=== PATIENT | female | born 1995 | race Asian ===

== ENCOUNTER → 2022-02-08 15:22 | Outpatient (CLI) | payer OTHER, SELFPAY ==
[2022-02-08 16:26] LABS: Add Manual Diff / Slide Review NO; Basophils Absolute Auto 100 /uL (0-100); Basophils Percent Auto 0.7 % (0-2); Eosinophils Absolute Auto 300 /uL (0-450); Eosinophils Percent Auto 2.2 % (2-4); Hematocrit 38.7 % (36-46); Hemoglobin 13.4 g/dL (12.0-16.0); Lymphocytes Absolute Auto 2700 /uL (1100-4500); Lymphocytes Percent Auto 22.3 % (25-40); Mean Corpuscular HGB Conc 34.5 % (30-36); Mean Corpuscular Hemoglobin 29.4 PG (26-34); Mean Corpuscular Volume 85.1 fL (80-100); Monocytes Absolute Auto 600 /uL (0-900); Monocytes Percent Auto 5.2 % (3-14); Neutrophils Absolute Auto 8300 /uL (1500-7000); Neutrophils Percent Auto 69.6 % (50-75); Platelet Count 324 X10^3/uL (150-400); Red Blood Cell Count 4.55 X10^6/uL (4.0-5.2); White Blood Cell Count 11.9 X10^3/uL (4.5-11.0)
[2022-02-09 03:36] LABS: RPR Screen Non Reactive (Non Reactive)
[2022-02-09 08:53] LABS: Varicella IgG Antibody 639 index (Immune >165)
[2022-02-10 16:46] LABS: Hepatitis B Surface Antigen NEGATIVE s/c (NEGATIVE)
[2022-02-10 17:02] LABS: HIV 1 & 2 Ab/Ag 4th Gen Combo NEGATIVE (NEGATIVE); Hep C Virus Ab w/Reflex Quant NEGATIVE s/c (NEGATIVE)
== END ==
PROVIDERS: Referring Provider Obstetrics & Gynecology; Visit Provider Obstetrics & Gynecology
DX: Z34.01 Encounter for supervision of normal first pregnancy, first trimester (principal)
CPT/HCPCS: 36415; 80055; 86787; 86803; 86850; 86900; 86901; 87389

== ENCOUNTER → 2022-03-22 09:07 | Outpatient (CLI) | payer OTHER, SELFPAY ==
[2022-03-22 13:44] LABS: Appearance Urine UA SL CLOUDY; Bilirubin Urine UA NEGATIVE (NEGATIVE); Color Urine UA YELLOW; Glucose Urine UA NEGATIVE (Negative); Ketones Urine UA NEGATIVE (NEGATIVE); Leukocyte Esterase Urine UA 3+ (NEGATIVE); Nitrite Urine UA NEGATIVE (Negative); Occult Blood Urine UA TRACE-INTACT (Negative); Protein Urine UA NEGATIVE (Negative); Specific Gravity Urine UA 1.015 (1.000-1.035); Urobilinogen Urine UA 0.2 E.U./dL (0.2)
[2022-03-22 14:01] LABS: Bacteria Urine Moderate (10-30); Culture Indicated Urine Specimen Cultured; RBC Urine 1-5/HPF (0-5/HPF); Squamous Epithelial Cell Urine 5-10 /HPF (0-5/HPF); WBC Urine 1-5/HPF (0-5/HPF); pH Urine UA 6.5 (4.5-8.0)
== END ==
PROVIDERS: Visit Provider Obstetrics & Gynecology
DX: Z34.01 Encounter for supervision of normal first pregnancy, first trimester (principal)
CPT/HCPCS: 81003; 81015; 87086

== ENCOUNTER → 2022-04-20 11:06 | Outpatient (CLI) | payer OTHER, SELFPAY ==
[2022-04-21 04:23] LABS: Candida species Positive (Negative); Gardnerella vaginalis Positive (Negative); Trichomoas vaginalis Negative (Negative)
== END ==
PROVIDERS: Visit Provider Obstetrics & Gynecology
DX: N89.8 Other specified noninflammatory disorders of vagina (principal)
CPT/HCPCS: 87480; 87510; 87660

== ENCOUNTER → 2022-04-20 11:21 | Outpatient (CLI) | payer OTHER, SELFPAY ==
[2022-04-22 22:04] LABS: Estriol, Free 1.63 ng/mL (.); Maternal Ethnicity Other (.); Maternal Weight 147 lbs (.); Number of Fetuses No (.); OSBR Risk 1 IN 10000 (.); Results Report (.); Test Results *Screen Negative* (.); hCG, MoM 0.44 (.); hCG, Serum 14114 mIU/mL (.)
== END ==
PROVIDERS: Referring Provider Obstetrics & Gynecology; Visit Provider Obstetrics & Gynecology
DX: Z34.02 Encounter for supervision of normal first pregnancy, second trimester (principal); N89.8 Other specified noninflammatory disorders of vagina
CPT/HCPCS: 36415; 82105; 82677; 84702; 86336; 87480; 87510; 87660

== ENCOUNTER → 2022-05-09 10:57 | Outpatient (CLI) | payer OTHER, SELFPAY ==
--- NOTE | 2022-05-09 10:59 | DI.US.S_ITS ---
PROCEDURE: US OB >= 14 WEEKS FETUS INDICATIONS: Anatomy OUTSIDE/PRIOR DATING DATA: Last menstrual period (LMP): 12/16/2021 LMP-based estimated date of delivery (MARGARETH): 09/22/2022. First dating scan (date and location): 05/09/2022. Estimated date of delivery (MARGARETH) from first dating scan: 09/20/2022. Working MARGARETH is 09/22/2022. TECHNIQUE: Real-time scanning was performed of the fetus, with image documentation and biometric measurements. COMPARISON: None. FINDINGS: General: A single living intrauterine gestation is present. Presentation: Vertex. Placenta: Placental position is anterior , without previa. Amniotic fluid index: 18.4 cm, normal range is 5-24 cm. Single deepest vertical pocket is 6.0 cm. heart rate: 160 beats per minute. Maternal cervical canal: 3.4 cm long. Normal lower limit is 2.5 cm. biometrics: Biparietal diameter: 21 weeks 1 day Head circumference: 20 weeks 2 days Abdominal circumference: 21 weeks 4 days Femur length: 20 weeks 2 days Clinically estimated gestational age: 20 weeks 4 days Composite gestational age from present scan: 20 weeks 6 days Estimated weight and percentile: 385 g; 64th percentile Anatomic survey: Neuro: Ventricles are non-dilated at less than 10 mm. Cisterna magna is normal at 3-11 mm. Cerebellum is normal in size and morphology. Nuchal skin fold: Normal at less than 6 mm between 14-21 weeks gestational age. Face: Nose and lips, facial profile are normal. Spine: No evidence for spina bifida. Heart: 4-chambered heart is present, with normal ventricular outflow tracts. Diaphragm: Diaphragm is intact. Stomach: Left-sided stomach is present. Kidneys: No hydronephrosis. Normal is less than 5 mm in 2nd trimester, less than 7 mm in 3rd trimester. Cord: 3-vessel cord has orthotopic insertion. Bladder: Normal in size. Extremities: All 4 extremities identified. IMPRESSION: 1. Single living IUP redemonstrated and interval growth is normal. 2. Normal anatomic survey. We strive to produce accurate, complete, and clear reports of imaging services. To assist us in improving patient care, this report was composed using standard report templates and voice recognition software. Therefore, it may contain abnormal punctuation, insertions and/or omissions. Occasional wrong-word or sound-alike substitutions may occur. Though we review the report and make efforts to correct it, we do recommend that the report be read carefully in proper context to recognize any text inaccuracies. Dictated by: Hari HALEY Interpreted: Carmen Molina MD on 05/09/2022 at 12:40 Transcribed by: ALBA on 05/09/2022 at 12:42 Approved by: Carmen Molina M.D. on 05/09/2022 at 13:17
== END ==
PROVIDERS: Referring Provider Obstetrics & Gynecology; Visit Provider Obstetrics & Gynecology
DX: Z34.02 Encounter for supervision of normal first pregnancy, second trimester (principal); Z3A.20 20 weeks gestation of pregnancy
CPT/HCPCS: 76811

== ENCOUNTER → 2022-05-23 09:53 | Outpatient (CLI) | payer OTHER, SELFPAY ==
[2022-05-23 17:46] LABS: Urine N gonorrhoeae NOT DETECTED
[2022-05-23 17:47] LABS: Urine Chlamydia NOT DETECTED
== END ==
PROVIDERS: Visit Provider Obstetrics & Gynecology
DX: Z34.02 Encounter for supervision of normal first pregnancy, second trimester (principal); Z3A.22 22 weeks gestation of pregnancy
CPT/HCPCS: 87491; 87591

== ENCOUNTER → 2022-06-22 11:46 | Outpatient (CLI) | payer OTHER, SELFPAY ==
[2022-06-22 13:54] LABS: Hematocrit 33.9 % (36-46); Hemoglobin 11.8 g/dL (12.0-16.0)
[2022-06-22 14:38] LABS: GTT (PREG) 1 Hour PP 50gm Dose 99 mg/dL (76-139)
== END ==
PROVIDERS: Referring Provider Obstetrics & Gynecology; Visit Provider Obstetrics & Gynecology
DX: Z34.02 Encounter for supervision of normal first pregnancy, second trimester (principal); Z3A.26 26 weeks gestation of pregnancy
CPT/HCPCS: 36415; 82950; 85014; 85018

== ENCOUNTER 2022-06-30 19:12 | Observation (INO) | payer OTHER, SELFPAY ==
--- NOTE | 2022-06-30 20:48 | DI.US.S_ITS ---
PROCEDURE: US OB LIMITED INDICATIONS: ABDOMINAL PAIN. OUTSIDE/PRIOR DATING DATA: Last menstrual period (LMP): 12/16/2021. LMP-based estimated date of delivery (MARGARETH): 09/22/2022. First dating scan (date and location): 05/09/2022. Estimated date of delivery (MARGARETH) from first dating scan: 09/20/2022. The calculations are made using the working MARGARETH of 09/22/2022. TECHNIQUE: Real-time scanning was performed of the fetus, with image documentation and biometric measurements. COMPARISON: [facility], , OB <= 14 WEEKS FETUS, 03/22/2022, 10:01. [facility], , OB >= 14 WEEKS FETUS, 05/09/2022, 11:03. FINDINGS: General: A single living intrauterine gestation is present. Presentation: Vertex. Placenta: Placental position is anterior , without previa. No periplacental fluid collections. Amniotic fluid index: 21.7 cm, normal range is 5-24 cm. Single deepest vertical pocket is 7.1 cm. heart rate: 139 beats per minute. Maternal cervical canal: 3.6 cm long. Normal lower limit is 2.5 cm. No evidence of funneling or endocervical fluid. Clinically estimated gestational age: 20 weeks 0 days IMPRESSION: 1. Single living intrauterine redemonstrated. 3. No periplacental fluid collections to suggest abruption. We strive to produce accurate, complete, and clear reports of imaging services. To assist us in improving patient care, this report was composed using standard report templates and voice recognition software. Therefore, it may contain abnormal punctuation, insertions and/or omissions. Occasional wrong-word or sound-alike substitutions may occur. Though we review the report and make efforts to correct it, we do recommend that the report be read carefully in proper context to recognize any text inaccuracies. Dictated by: Amilcar Morocho M.D. on 06/30/2022 at 22:49 Approved by: Amilcar Morocho M.D. on 06/30/2022 at 22:52
--- NOTE | 2022-06-30 21:01 | P.TNLD_ITS ---
Visit Information Visit Information Date of evaluation: 06/30/22 Primary OB Provider: Mariam Rankin On-call OB Provider: Mariam Rankin Reason for Evaluation: Yes other Comments/Additional reasons for admission: 27-year-old G1 female at 28 weeks EGA brought in for further evaluation of abdominal pain. She called reporting hour long pain beneath her umbilicus, rates pain approximately 4/10 on pain scale. She felt it more as a constant discomfort for past hour, but did feel crampy in nature. On phone she sounded to be pausing intermittently due to discomfort, concern for possible contractions. She reports routinely hydrating well through the day and same today. pain beneath umbilicus and not radiating above or below the umbilicus. advised to take some Tylenol on her way into the hospital which she did. She reports umbilical pain now resolved. She denied abdominal tightening, but now here on monitor, she does feel some abdominal tightening. She denies leakage of fluid, vaginal bleeding or abnormal vaginal discharge. Recently treated for yeast infection twice. Denies vaginal itching. Denies urinary symptoms or recent illness. has been uncomplicated. Vital Signs Vital Signs: Temperature 36.4? 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) special michael needs: No travel history: recent ([place]) seatbelt use: always water heater temp set < 120 deg: Yes working smoke detector in home: Yes fire extinguisher in home: Yes carbon monox detector in home: Yes firearms in home: No do you feel safe at home: Yes Smoking Status: Former smoker (Quit 2017) Tobacco: How many years used: 5 second hand exposure: No alcohol intake: former substance use type: does not use during the past year weight has: remained stable well-balanced diet: about half the time daily servings fruits/ve-4 caffeine: Yes (Aware of and well within 200 mg limit) Type(s) of exercise: weight lifting frequency: 3-4 times per week Exam Narrative Exam Narrative: General: Well-appearing female in no acute distress Abdomen gravid, nontender. Uterus is nontender. No tenderness beneath the umbilicus. Extremities no edema Speculum exam for fibronectin. FFN collected from posterior cul-de-sac. Fairly heavy white thick discharge noted which did not appear consistent with yeast, but did appear heavier than discharge..so sample sent for wet prep to rule out recurrent yeast infection. l Objective Imaging OB ultrasound: Radiologist's impression: ? FINDINGS:? ? General:? A single living intrauterine gestation is present.? Presentation:? Vertex.? Placenta:? Placental position is anterior , without previa.? No periplacental fluid collections. ? Amniotic fluid index:? 21.7 cm, normal range is 5-24 cm.? Single deepest vertical pocket is 7.1 cm. heart rate:? 139 beats per minute.? Maternal cervical canal:? 3.6 cm long.? Normal lower limit is 2.5 cm.? No evidence of funneling or endocervical fluid. Clinically estimated gestational age:? 20 weeks 0 days ? IMPRESSION:? ? 1. Single living intrauterine redemonstrated.? ? 3. No periplacental fluid collections to suggest abruption. ? Labs Labs: urinalysis negative and no signs of dehydration. Wet prep negative for Lavern, BV or yeast fibronectin collected but not sent since cervical length was normal Evaluation Evaluation Baseline heart rate: 145 Variability: Average (6-10) monitor accelerations: Present Monitor Decelerations: Absent Contraction Frequency (minutes): 6 Uterine Contraction Intensity: Mild Category of Tracing: Appropriate for gestational age Status: Category l Cervical dilation (cm): 0 Cervical effacement (%): 0 Comments: Speculum exam performed and fibronectin collected and held. Digital cervical exam then perform 0/long. Baby not felt in the pelvis. Diagnosis, Plan/Disposition Plan/Disposition Plan: on EFM/toco, she was initially having contractions every 6 minute. She was f eeling the abdominal tightening. She was no longer feeling any umbilical discomfort since taking Tylenol at home. Ultrasound ordered since she had had constant abdominal pain, some contractions and has an anterior placenta. Ultrasound showed no signs of abruption, normal cervical length 3.6 cm. BOB was high normal at 21. Speculum exam performed and fibronectin collected- not sent after normal cervical length and normal vaginal cervical exam. Urinalysis was negative. Wet prep was negative. Placed back on EFM/toco afer the ultrasound. Initially had contraction again, then low-grade urinary irritability. She was observed for some time, And contractions have stopped. She feels better, she is not feeling abdominal tightening. Her umbilical discomfort has improved. Impression: contractions, without labor, short duration. Contractions ceased spontaneously. Evaluation was reassuring. She is at increased risk for contractions with the higher level of amniotic fluid. I gave her labor precautions. OB Disposition: home
[2022-06-30 21:14] LABS: Appearance Urine UA CLEAR; Bilirubin Urine UA NEGATIVE (NEGATIVE); Color Urine UA YELLOW; Glucose Urine UA NEGATIVE (Negative); Ketones Urine UA NEGATIVE (NEGATIVE); Leukocyte Esterase Urine UA NEGATIVE (NEGATIVE); Nitrite Urine UA NEGATIVE (Negative); Occult Blood Urine UA NEGATIVE (Negative); Protein Urine UA NEGATIVE (Negative); Specific Gravity Urine UA <=1.005 (1.000-1.035); Urobilinogen Urine UA 0.2 E.U./dL (0.2)
[2022-06-30 21:24] LABS: Bacteria Urine None Seen; Culture Indicated Urine Cult Not Indicated; RBC Urine 0-1/HPF (0-5/HPF); WBC Urine 0-1/HPF (0-5/HPF)
== END 2022-06-30 23:30 | disposition home or self-care (01) ==
LOC: LABOR 19:14
PROVIDERS: Admitting Provider Obstetrics & Gynecology; PCP Physician Assistant; Referring Provider Obstetrics & Gynecology; Visit Provider Obstetrics & Gynecology
DX: O60.03 Preterm labor without delivery, third trimester (principal); Z3A.28 28 weeks gestation of pregnancy
CPT/HCPCS: 59025; 59050; 76815; 81001; 87210; G0378; G0379

== ENCOUNTER → 2022-08-25 14:46 | Outpatient (CLI) | payer OTHER, SELFPAY ==
[2022-08-26 17:28] LABS: Strep Grp B PCR NEG for Grp B Strep
== END ==
PROVIDERS: Visit Provider Physician Assistant Medical
DX: Z34.03 Encounter for supervision of normal first pregnancy, third trimester (principal); Z3A.36 36 weeks gestation of pregnancy
CPT/HCPCS: 87653

== ENCOUNTER → 2022-09-08 11:11 | Outpatient (CLI) | payer OTHER, SELFPAY ==
[2022-09-08 11:56] LABS: Add Manual Diff / Slide Review NO; Basophils Absolute Auto 0 /uL (0-100); Basophils Percent Auto 0.4 % (0-2); Eosinophils Absolute Auto 100 /uL (0-450); Eosinophils Percent Auto 1.1 % (2-4); Hematocrit 35.7 % (36-46); Hemoglobin 12.1 g/dL (12.0-16.0); Lymphocytes Absolute Auto 1500 /uL (1100-4500); Lymphocytes Percent Auto 16.3 % (25-40); Mean Corpuscular Hemoglobin 29.4 PG (26-34); Mean Corpuscular Volume 86.5 fL (80-100); Monocytes Absolute Auto 400 /uL (0-900); Monocytes Percent Auto 4.8 % (3-14); Neutrophils Absolute Auto 6900 /uL (1500-7000); Neutrophils Percent Auto 77.4 % (50-75); Platelet Count 301 X10^3/uL (150-400); Red Blood Cell Count 4.13 X10^6/uL (4.0-5.2); Red Cell Distribution Width 14.2 % (11.6-14.8)
[2022-09-08 12:00] LABS: Alanine Aminotransferase 19 IU/L (<35); Albumin 3.9 g/dL (3.5-5.0); Albumin Globulin Ratio 1.1 (1.0-2.8); Alkaline Phosphatase 191 U/L (38-126); Aspartate Aminotransferase 28 IU/L (14-36); BUN Creatinine Ratio 9.6 (6-22); Bilirubin Total 0.4 mg/dL (0.2-1.3); Blood Urea Nitrogen 5 mg/dL (7-17); Calcium 8.9 mg/dL (8.4-10.2); Carbon Dioxide 27 mmol/L (22-32); Chloride 101 mmol/L (98-107); Estimated Glomerular Filt Rate > 60 mL/min (>60); Globulin 3.7 g/dL (1.7-4.1); Glucose 87 mg/dL (70-100); HEMOLYSIS < 15 (0-50); Potassium 3.9 mmol/L (3.4-5.1); Sodium 135 mmol/L (137-145); Total Protein 7.6 g/dL (6.3-8.2); Uric Acid 4.6 mg/dL (2.5-6.2)
[2022-09-08 15:28] LABS: Creatinine Urine Random 19.7 mg/dL; Protein (Total) Urine Random 18 mg/dL (0-12); Protein Creatinine Ratio Urine 0.91 GRAM/24H
== END ==
PROVIDERS: Referring Provider Obstetrics & Gynecology; Visit Provider Obstetrics & Gynecology
DX: R03.0 Elevated blood-pressure reading, without diagnosis of hypertension (principal); Z34.90 Encounter for supervision of normal pregnancy, unspecified, unspecified trimester
CPT/HCPCS: 36415; 80053; 82570; 84156; 84550; 85025

== ENCOUNTER → 2022-09-12 13:45 | Outpatient (CLI) | payer OTHER, SELFPAY ==
[2022-09-12 16:25] LABS: Creatinine Urine Random 21.2 mg/dL; Protein (Total) Urine Random 17 mg/dL (0-12)
== END ==
PROVIDERS: Referring Provider Obstetrics & Gynecology; Visit Provider Obstetrics & Gynecology
DX: R03.0 Elevated blood-pressure reading, without diagnosis of hypertension (principal)
CPT/HCPCS: 82570; 84156

== ENCOUNTER 2022-09-14 10:17 | Outpatient (CLI) | payer OTHER, SELFPAY | END 2022-09-14 12:05 | disposition home or self-care (01) | LOC: LABOR 10:30 → OB 09-15 06:37 | PROVIDERS: Referring Provider Obstetrics & Gynecology; Visit Provider Obstetrics & Gynecology | DX: O13.3 Gestational [pregnancy-induced] hypertension without significant proteinuria, third trimester (principal); Z3A.38 38 weeks gestation of pregnancy; R80.9 Proteinuria, unspecified | CPT/HCPCS: 59025; 82570; 84156; G0378; G0379 ==

== ENCOUNTER → 2022-09-14 10:21 | Outpatient (CLI) | payer OTHER, SELFPAY ==
[2022-09-14 10:50] LABS: Creatinine Urine Random 28.9 mg/dL; Protein (Total) Urine Random 17 mg/dL (0-12); Protein Creatinine Ratio Urine 0.58 GRAM/24H
== END ==
PROVIDERS: Visit Provider Obstetrics & Gynecology
DX: R80.9 Proteinuria, unspecified (principal)
CPT/HCPCS: 82570; 84156

== ENCOUNTER 2022-09-20 22:16 | Inpatient (IN) | payer OTHER, SELFPAY ==
[2022-09-20 22:26] VITALS: BP 124/76
--- NOTE | 2022-09-20 23:36 | P.HPOB_ITS ---
OB HPI Date/Time Date of admission: 09/20/22 Date Patient Seen: 09/20/22 Time Patient Seen: 23:15 History of Present Condition Chief complaint: observation of labor Date of Last Menstrual Period: 12/16/21 MARGARETH Calculator Estimated Delivery Date Method Current WG Current Estimate 09/22/22 LMP (Certain) 39w 6d Other Estimates 09/23/22 Ultrasound #1 39w 5d Estimated Gestational Age (weeks): 39w5d : 1 Para: 0 Narrative: Jody says she started noticing contractions yesterday and then had changes in her cervical mucus last night around midnight. Paged tonight with q 5 min contractions x 1 hour and then came in approx 3 hours later for labor assessment. Reports bloody show but does not think her water broke. Baby moving well all day. Coping well. Would like to avoid interventions and epidural including prefers intermittent monitoring if possible. Denies REDD, visual changes, and right upper epigastric pain. care: good care, initiated at week # (6), number of visits (10) and pounds weight gain (22) Dating criteria OB: LMP confirmed by 1st trimester US Ultrasounds: normal 1st trimester US and normal mid trimester US Obstetrical complications: other (suspiscion of GHTN/ pre-eclampsia with elevated PCR x 3 and clinic HTN x 1) Medical complications OB: none (reported) External History Prior Pregnancies: none : 1 Para: 0 Estimated Date of Delivery: 09/22/22 Indications Other reason(s) for admission: Labor with cervical change and bloody show Preadmission Labs Last OB Lab Results: Blood Type O Positive 09/20/22 23:00 Antibody Screen Negative 09/20/22 23:00 Hematocrit 36.8 % (36-46) 09/20/22 23:00 Hemoglobin 12.6 g/dL (12.0-16.0) 09/20/22 23:00 Hepatitis B Surface Antigen Negative s/c (NEGATIVE) 02/08/22 15 :34 Hepatitis C Antibody Negative s/c (NEGATIVE) 02/08/22 15:34 Rubella Antibody 148.0 IU/mL (>15) 02/08/22 15:34 Varicella-Zoster IgG Antibody 639 index (Immune >165) 02/08/22 15:34 Glucose 1 Hour 99 mg/dL (76-139) 06/22/22 13:08 Group B Streptococcus (PCR) Neg for grp b strep 08/25/22 14:46 Glucose Tolerance Testin hr (passed) External Labs Genetic Screens: Quad screen: Normal (negative) Evaluation Evaluation Baseline heart rate: 140 Variability: Moderate (11-25) monitor accelerations: Present Monitor Decelerations: Absent Contraction Frequency (minutes): 3 Uterine Contraction Intensity: Strong/Firm Category of Tracing: Appropriate for gestational age Status: Category l Dilation (cm): 4 Effacement (%): 80 Dilation: 3-4 cm Effacement: >/=80% station: -1 Position of cervix: mid Consistency: medium Mata score: 9 PFSH Surgical History Status post third molar tooth extraction Family History Grandmother [place]'s chorea Family/Other [place]'s chorea Father Multiple sclerosis Grandmother Hypertension Mother Uterine myoma Grandfather Alzheimer's dementia Parkinson disease Social History marital status: number of children: 0 household members: spouse lives independently: Yes housing: house pets and animals: Yes (2 dogs) education level: college (some college) 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) special michael needs: No travel history: recent ([place]) seatbelt use: always water heater temp set < 120 deg: Yes working smoke detector in home: Yes fire extinguisher in home: Yes carbon monox detector in home: Yes firearms in home: No do you feel safe at home: Yes Smoking Status: Former smoker Tobacco: How many years used: 5 second hand exposure: No alcohol intake: former substance use type: does not use during the past year weight has: remained stable well-balanced diet: about half the time daily servings fruits/ve-4 caffeine: Yes (Aware of and well within 200 mg limit) Type(s) of exercise: weight lifting frequency: 3-4 times per week Meds Home Medications and Allergies Home Medications Medication Instructions Recorded Confirmed Type prenat.vits,antonia,hvl-gvwx-lakdr 1 tab PO DAILY 02/09/22 09/14/22 History Allergies Allergy/AdvReac Type Severity Reaction Status Date / Time shrimp Allergy Mild Swelling Verified 09/14/22 09:49 of Lip/Tongue/Throat Review of Systems Review of Systems Narrative: All systems reviewed and negative except as noted in HPI OB Exam Vital signs Blood Pressure: 150/80 (repeated: 124/76, 140/84) Pulse Rate: 68 Respiratory Rate: 16 Temperature: 36.7 F HENMT Head: normal to inspection Eyes General: appearance normal, both eyes and all related structures Resp Effort & Inspection: normal respiratory effort Auscultation: clear to auscultation bilaterally Cardio Rate: regular rate Rhythm: regular rhythm Extremities Lower extremity: Yes normal to inspection DTR's: Rt Patellar: 1+ and Lt Patellar: 1+ GI Inspection: normal to inspection and striae Palpation: Yes no hepatosplenomegaly and Yes other (gravid) Presentation: vertex Estimated Weight (lbs): 8 Amniotic Fluid: no fluid Objective Labs 09/20/22 23:00 09/20/22 23:40 Assessment and Plan Assessment and Plan Assessment and Plan narrative: at 39w5d Early labor FHR Cat 1 GBS neg Rh positive Intact membranes GHTN versus pre-eclampsia Admit to L&D. Nitrous oxide PRN for pain management IV in place PIH panel and PCR sent r/to history of hypertension in and on admission Time Spent with Patient Total time spent with greater than 50% in coordination of care (as documented) at patient's floor/unit and/or counseling patient:: 15-24 minutes
[2022-09-20 23:52] LABS: Add Manual Diff / Slide Review NO; Basophils Absolute Auto 100 /uL (0-100); Basophils Percent Auto 0.5 % (0-2); Eosinophils Absolute Auto 100 /uL (0-450); Eosinophils Percent Auto 0.6 % (2-4); Hematocrit 36.8 % (36-46); Hemoglobin 12.6 g/dL (12.0-16.0); Lymphocytes Absolute Auto 1800 /uL (1100-4500); Lymphocytes Percent Auto 12.2 % (25-40); Mean Corpuscular HGB Conc 34.3 % (30-36); Mean Corpuscular Hemoglobin 29.4 PG (26-34); Mean Corpuscular Volume 85.7 fL (80-100); Monocytes Absolute Auto 800 /uL (0-900); Monocytes Percent Auto 5.7 % (3-14); Neutrophils Absolute Auto 11700 /uL (1500-7000); Platelet Count 315 X10^3/uL (150-400); Red Blood Cell Count 4.29 X10^6/uL (4.0-5.2); Red Cell Distribution Width 14.6 % (11.6-14.8); White Blood Cell Count 14.4 X10^3/uL (4.5-11.0)
[2022-09-20 23:59] VITALS: BP 150/80; PULSE 68; RESP 16; TEMP 2.6; TEMP 36.7
[2022-09-21 00:07] LABS: Aspartate Aminotransferase 25 IU/L (14-36); BUN Creatinine Ratio 15.2 (6-22); Blood Urea Nitrogen 7 mg/dL (7-17); Estimated Glomerular Filt Rate > 60 mL/min (>60); Uric Acid 4.4 mg/dL (2.5-6.2)
[2022-09-21 00:32] LABS: Creatinine Urine Random 75.6 mg/dL; Protein (Total) Urine Random 24 mg/dL (0-12); Protein Creatinine Ratio Urine 0.31 GRAM/24H
--- NOTE | 2022-09-21 02:41 | PM.OBPNLAB ---
Date/Time Date Patient Seen: 09/21/22 Time Patient Seen: 02:41 Pain Control Comments: Partner Nic came out of room to report that Jody thinks her water has broken. SNM and RN in room. Jody said it just started with last contraction, not sure if she urinated or if water broke. Contractions getting more intense. Starting to get nauseated and experiencing uncontrollable shaking at times. Still coping well with breathing and position changes in bed. Jody says that contractions are less intense when standing. Agreed to get into tub after suggestion. Pelvic Exam Comments: Cervical exam declined Contractions Date/Time contractions began: 09/19/2022 before midnight Contractions on admission: regular Monitor mode: Palpation Contraction frequency (min): 3 Contraction duration (min): 1 Contraction pattern: Regular Contraction intensity: Strong/Firm Status Heart Rate Baseline: 135 Monitor Accelerations: Present Monitor Decelerations: Absent Comments: intermittent w/ doppler PIH labs: PCR elevated 0.31. Lower than 3 previous PCRs. Otherwise serum labs normal. PLTs 315. Assessment and Plan Assessment: active labor Comments: ASSESSMENT: 27 yo Active labor ROM @ 0219, clear fluid, afebrile GBS negative FHR reassuring by Doppler GHTN. BPs stable. Asymptomatic. PLAN: Reviewed normal pre-eclampsia labs. Mild elevation of PCR. Encouraged continual position changes Jody in tub with Nic at side Continue intermittent monitoring Reassess in 3-4 hours or sooner as needed Anticipate NVSD
--- NOTE | 2022-09-21 18:24 | PM.OBPNLAB ---
Date/Time Date Patient Seen: 09/21/22 Time Patient Seen: 08:10 Pain Control Pain control: tolerating well Pelvic Exam Effacement (%): 80 station: -1 Comments: Pt will not allow exam Contractions Contractions on admission: irregular Monitor mode: Palpation Contraction frequency (min): 3 Contraction pattern: Regular Contraction intensity: Strong/Firm Status status: Category l Heart Rate Baseline: 135 Monitor Accelerations: Present Monitor Decelerations: Absent Monitor Variability: Moderate Assessment and Plan Assessment: active labor Plan: continuous present management Comments: Expectant management
--- NOTE | 2022-09-21 18:25 | PM.OBPNLAB ---
Date/Time Date Patient Seen: 09/21/22 Time Patient Seen: 17:30 Pain Control Pain control: tolerating well Pelvic Exam Dilation (cm): 10 Effacement (%): 100 station: 0 Amniotic membrane status: Ruptured (Light meconium) Contractions Contractions on admission: irregular Monitor mode: Palpation Contraction frequency (min): 3 Contraction pattern: Regular Contraction intensity: Strong/Firm Status status: Category l Heart Rate Baseline: 140 Monitor Accelerations: Present Monitor Decelerations: Early Monitor Variability: Moderate Assessment and Plan Assessment: active labor (Second stage, pushing effectively for 2 1/2 hours, OP) Plan: continuous present management Comments: Rocker bottom pushing Expectant management to
--- NOTE | 2022-09-21 19:16 | P.PCNOB_ITS ---
Events: Pre-Eclampsia and Meconium Stained Fluid Labor & Delivery Delivery date: 09/21/22 Intrapartal Events: Prolonged Labor > 20 hours Cervical ripening method: none Induction method: none Delivery monitor: external FHT Route of delivery: Episiotomy description: None L&D Laceration Description: Perineal - 1st Degree ((hemostatic without repair)) and Labial (left labial (hemostatic without repair)) Quantitative Blood Loss: 150 Anesthesia Type: None Complications: Thin meconium at delivery, infant initially stunned but became vigorous after drying and stimulation Narrative: Jody arrived in labor with KRISSY Lucero. Pre-eclampsia diagnosed after x2 elevated BPs and elevated Pr:Cr with admit labs. No neurologic symptoms. Total SROM x 17 hours, initially clear then light meconium during labor, afebrile throughout labor. Progressed to complete without augmentation or labor anesthesia. Began pushing at [address] Thompson. Strong maternal effort initially and for 90min. After 3 hours and multiple position changes and lots of coaching and encouragement and a total of 4 hour and 36 minute second stage led to moderate crown. At that time, RT was called to standby for the and warm compresses were applied to perineum. Encouraged to continue with strong but shorter pushes for perineal stretching. Baby's head delivered at the end of a contraction in OA position, restituted to DIEUDONNE. Thin meconium noted with delivery of head. A single, loose nuchal cord was easily reduced and the shoulders delivered without additional maneuvers with hands on by SNM and . of male at 1904 with copious terminal meconium noted. [place] was vigorous after being placed on maternal abdomen for drying and stimulation. 30 units of Pitocin in 500mL LR was started at 300mL/hr for active management of the third stage of labor. Cord clamped by SNM and cut by FOB after delayed cord clamping. Placenta delivered [place], intact with gentle traction. Fundus immediately firm and bleeding was scant. 1st degree perineal and small left labial laceration noted, hemostatic and well approximated with no indication for repair. QBL 150 mL. Jody and baby Wilfredo stable and skin to skin as I left the room. Tamiko Abarca, RN, SNM I was present for the entirety of the delivery. Dr. Tra Thompson Baby 1: Infant gender: Male Presentation: vertex Position: Right Occiput Anterior Placenta delivery description: Spontaneous Cord Vessel Description: 3 Vessels, Nuchal Cord (x1), Loose and Reduced score (1 min): 8 score (5 min): 8 weight: 7 lb 8.7 oz Plan for aftercare: Routine care
[2022-09-21] MEDS: IBUPROFEN 600 MG TABLET PO (20:59)
[2022-09-21] MEDS: ACETAMINOPHEN 325 MG TABLET 650 MG PO (20:59)
[2022-09-21] MEDS: DERMOPLAST SPRAY 20% 60 ML 1 SPRAY TOP (21:00)
[2022-09-22] MEDS: ACETAMINOPHEN 325 MG TABLET 650 MG PO (05:27)
[2022-09-22] MEDS: IBUPROFEN 600 MG TABLET PO (05:27)
--- NOTE | 2022-09-22 05:43 | PM.OBPN.1 ---
Subjective - OB Subjective Patient comments: no complaints, pain well controlled and tolerating diet baby status: doing well feeding status: exclusively breast feeding Narrative: good initial , now with difficulty d/t sleepy baby Date Patient Seen: 09/22/22 Time Patient Seen: 05:44 Interval history: Day of delivery: Voiding and ambulating independently. Tolerating a general diet. Pain is well controlled with PO medication. Partner is present and supportive. They are unsure about discharge to [facility] [place] at 24 hours, unless improves. Exam Vital Signs (past 8 hours): BP 112/61, HR 82, RR 19/min, T 97.7, SpO2 97% on RA Other: Fundus firm, @ u, midline, bleeding scant. Moderate perineal edema. Objective Labs 09/20/22 23:00 09/20/22 23:40 Assessment & Plan Assessment and Plan (1) Pre-eclampsia affecting childbirth: Status: Acute Assessment and plan: now normotensive (2) First degree perineal laceration during delivery: Status: Acute Plan day: 1 plan OB: routine care Time Spent With Patient Time: Total time spent is greater than 50% in coordination of care (as documented) at patient's floor/unit and/or counseling patient: Time with patient: less than 15 minutes
[2022-09-22 06:31] LABS: Hematocrit 31.8 % (36-46); Hemoglobin 10.8 g/dL (12.0-16.0)
[2022-09-22] MEDS: DOCUSATE 100 MG CAPSULE PO (08:49)
[2022-09-22] MEDS: PRENATAL VIT,CALC/IRON/FOLIC 1 TABLET 1 TAB PO (08:49)
[2022-09-22 16:59] VITALS: BP 124/79; PULSE 75; RESP 16; TEMP 36.9
--- NOTE | 2022-09-22 17:24 | PM.OBDS.1 ---
Discharge Providers Provider Date of admission: 09/20/22 22:16 Discharge Date: 09/22/22 Primary care physician: Radha GALEANA Provider Consults: 09/20/22 23:32 Consult to Anesthesiology Urgent Comment: Zak Consulting Provider: Anesthesiologist Reason for consultation: labor Has provider been notified: No 09/22/22 19:14 Consult to Poultry Picking Machine Tender Routine Comment: Discharge provider: Arabella Tobias DO Summary Hospital Course Date Patient Seen: 09/22/22 Time Patient Seen: 16:45 Diagnoses: Spontaneous vaginal delivery 39 weeks gestation Preeclampsia without severe features Hospital Course: 27-year-old G1 now P1 after spontaneous vaginal delivery at 39 weeks and 6 days gestation. Patient presented in active labor with elevated blood pressures. Urine protein creatinine ratio was elevated, labs otherwise normal. Patient was without neurologic symptoms. She progressed well without anesthesia throughout her and delivered a vigorous male after 4-1/2 hours of pushing. She had small first-degree lacerations which were not repaired. course has been uncomplicated and blood pressure is within normal limits. She is ambulating voiding and passing flatus. Vaginal bleeding is moderate and decreasing. Pain controlled with ibuprofen. is going well. She would like to discharge home tonight. Advised patient to call for fevers, severe pain or bleeding through more than a pad an hour. Follow-up for 6 week visit or sooner if needed. Peripartum Data Delivery Method: Natural Vaginal Laceration Description: Labial complications: none 1: Gender: Male Discharge Diagnosis (1) Pre-eclampsia affecting childbirth: Status: Acute (2) First degree perineal laceration during delivery: Status: Acute (3) Spontaneous vaginal delivery: Status: Acute Time Spent with Patient Time attestation: Total time spent providing and/or coordinating discharge services: Objective Labs 09/22/22 06:17 09/20/22 23:40 Labs: Laboratory Results - last 24 hr 09/22/22 06:17 Hgb 10.8 L Hct 31.8 L Exam Vital Signs (past 8 hours): - 09/22/22 16:59 Temperature 98.5 F Pulse Rate 75 Respiratory Rate 16 Blood Pressure 124/79 Narrative Exam Narrative: General: Awake and alert, no acute distress. HEENT: NCAT, EOMI, moist oral mucosa CV: Regular rate and rhythm, no murmurs, rubs or gallops Lungs: CTAB, no wheezes, rales, or rhonchi Abdomen: Soft, nontender; bowel tones active; uterus firm 1 cm below umbilicus Extremities: Warm, no edema Discharge Plan Discharge Plan Patient Disposition: Home Provider Discharge Comment: Call for fevers, chills or bleeding through a pad an hour. Discharge orders & Medications Prescriptions: New docusate sodium 100 mg Capsule 100 mg PO DAILY Qty: 30 0RF ibuprofen 600 mg Tablet 600 mg PO Q6HR PRN (Reason: Pain, Mild (1-3)) Qty: 30 0RF Continued prenat.vits,antonia,[id number] Tablet 1 tab PO DAILY Follow up/Referrals: ProviderRadha [Primary Care Provider] - Nicol Thompson MD [Physician] - 6 Weeks Diet/Activity/Treatments Diet: Diet as Tolerated Skin/Wound/Dressing Care Report to your healthcare provider any signs of infection, such as:: chills, fever, night sweats, increased pain, unusual drainage and unusual redness Visit Report/Discharge Packet Stand Alone Forms: Patient Portal/API, Stroke Signs & Symptoms Discharge Data Primary Care Provider: ProviderRadha
== END 2022-09-22 19:10 | disposition home or self-care (01) | DRG 807 ==
PROVIDERS: Obstetrics & Gynecology; Admitting Provider Advanced Practice Midwife; Referring Provider Advanced Practice Midwife; Visit Provider Advanced Practice Midwife
DX: O14.04 Mild to moderate pre-eclampsia, complicating childbirth (principal); Z37.0 Single live birth; Z3A.39 39 weeks gestation of pregnancy; O63.1 Prolonged second stage (of labor); O42.02 Full-term premature rupture of membranes, onset of labor within 24 hours of rupture; O69.81X0 Labor and delivery complicated by cord around neck, without compression, not applicable or unspecified
CPT/HCPCS: 36415; 59050; 59400; 59409; 82570; 84156; 84450; 84550; 85014; 85018; 85025; 86850; 86900; 86901; G0379